=== PATIENT | female | born 1935 | race Caucasian/White ===

== ENCOUNTER 2022-03-29 11:17 | Observation (INO) ==
[2022-03-29] MEDS ORDERED: predniSONE 20 MG TABLET ONE (13:22)
[2022-03-29] MEDS ORDERED: predniSONE 20 MG TABLET PO ONE (13:27)
[2022-03-29] MEDS ORDERED: Ipratropium/Albuterol Neb 3 ML ONE (13:39)
[2022-03-29 13:49] LABS: Basophils % 0.3 %; Eosinophils # 0.2 K/mcL (0.0-0.6); Eosinophils % 2.5 %; Hematocrit 28.7 % (35.3-44.9); Hemoglobin 9.1 g/dL (11.5-15.4); Immature Granulocytes % 0.9 % (0-4); Lymphocytes # 0.9 K/mcL (0.6-4.6); Lymphocytes % 9.1 %; Mean Corpuscular HGB Conc 31.7 g/dL (31.6-35.5); Mean Corpuscular Volume 97.6 fL (83.0-100.0); Mean Platelet Volume 9.5 fL (9.4-12.4); Monocytes # 0.8 K/mcL (0.0-1.3); Monocytes % 8.2 %; Neutrophils # 7.4 K/mcL (1.6-8.9); Platelet Count 229 K/mcL (140-400); Red Blood Count 2.94 M/mcL (3.82-4.97); Red Cell Distribution Width 13.8 % (11.5-14.5); White Blood Count 9.4 K/mcL (4.3-11.1)
[2022-03-29 13:50] LABS: BUN/Creatinine Ratio 17 (6-26); Blood Urea Nitrogen 24 mg/dL (8-23); Carbon Dioxide 27 mEq/L (23-29); Chloride 101 mEq/L (98-107); Glucose 105 mg/dL (70-105); Osmolality,Calculated 290 (280-300); Potassium 3.9 mEq/L (3.5-5.1); Sodium 138 mEq/L (136-145); Troponin I < 0.03 ng/mL (< 0.04)
[2022-03-29 14:25] LABS: Influenza A PCR Negative (Negative); Influenza B PCR Negative (Negative); Resp. Syncytial Virus PCR Negative (Negative)
[2022-03-29 14:26] LABS: SARS-CoV-2 by PCR (In House) Negative (Negative)
[2022-03-29] MEDS ORDERED: FLUoxetine HCl Oral Soln 20 MG/5 ML UDC PO SCH (22:26)
[2022-03-29] MEDS ORDERED: FLUoxetine 20 MG CAPSULE PO ONE (22:33)
[2022-03-30] MEDS ORDERED: 0.9 % Sodium Chloride 1,000 ML ONE (01:26)
[2022-03-30] MEDS ORDERED: Iopamidol - 370 500 ML MLS IVP ONE (03:59)
[2022-03-30] MEDS ORDERED: Acetaminophen 325 MG TABLET PO PRN (04:21)
[2022-03-30] MEDS ORDERED: Ondansetron 4 MG/2 ML VIAL IVP PRN (04:21)
[2022-03-30] MEDS ORDERED: Naloxone 0.4 MG/ML INJ IVP PRN (04:21)
[2022-03-30] MEDS ORDERED: Ipratropium/Albuterol Neb 3 ML IH PRN (08:15)
[2022-03-30] MEDS: MethylPREDNISolone 40 MG/ML VIAL IVP SCH ×2 (08:32→17:37)
[2022-03-30] MEDS: 0.9 % Sodium Chloride 1,000 ML IVC SCH (14:36)
[2022-03-30] MEDS: *HR* Heparin 5,000 UNIT/ML VIAL SQ SCH ×2 (14:36→20:59)
[2022-03-31 03:46] LABS: Basophils % 0.1 %; Hematocrit 31.7 % (35.3-44.9); Hemoglobin 9.7 g/dL (11.5-15.4); Immature Granulocytes % 1.2 % (0-4); Lymphocytes # 0.6 K/mcL (0.6-4.6); Lymphocytes % 5.3 %; Mean Corpuscular HGB Conc 30.6 g/dL (31.6-35.5); Mean Corpuscular Hemoglobin 29.8 pg (28.0-33.3); Mean Corpuscular Volume 97.5 fL (83.0-100.0); Mean Platelet Volume 9.5 fL (9.4-12.4); Monocytes # 0.5 K/mcL (0.0-1.3); Monocytes % 4.1 %; Neutrophils # 10.8 K/mcL (1.6-8.9); Platelet Count 279 K/mcL (140-400); Red Blood Count 3.25 M/mcL (3.82-4.97); Red Cell Distribution Width 13.5 % (11.5-14.5); Segmented Neutrophils % 89.3 %; White Blood Count 12.1 K/mcL (4.3-11.1)
[2022-03-31] MEDS: 0.9 % Sodium Chloride 1,000 ML IVC SCH (04:16)
[2022-03-31 04:42] LABS: Magnesium 2.1 mg/dL (1.6-2.6); Phosphorous 3.7 mg/dL (2.7-4.5); Potassium 4.2 mEq/L (3.5-5.1)
[2022-03-31] MEDS: MethylPREDNISolone 40 MG/ML VIAL IVP SCH (05:18)
[2022-03-31] MEDS: *HR* Heparin 5,000 UNIT/ML VIAL SQ SCH ×2 (05:18→13:54)
[2022-03-31] MEDS ORDERED: lisinopriL 20 MG TABLET PO SCH (09:00)
[2022-03-31] MEDS ORDERED: atenoloL 50 MG TABLET PO SCH (09:00)
[2022-03-31 10:52] VITALS: BP 108/59; PULSE 60; TEMP 98.6
[2022-03-31 13:19] VITALS: O2SAT 94
== END 2022-03-31 14:51 | disposition home or self-care (01) ==
LOC: 3BNU 11:17 → EMEROOARM 11:17 → 3BNU 23:40 → SUATTDRO 03-30 02:24
PROVIDERS: ADMIT Internal Medicine; ATTEND Nurse Practitioner